=== PATIENT | male | born 1985 | race Caucasian/White ===

== ENCOUNTER 2020-12-07 18:38 | Outpatient (REF) | payer OTHER, SELFPAY ==
[2020-12-07 19:19] LABS: Amphetamine Screen Urine Not Detected (Not Detect); Barbiturates, Urine Not Detected (Not Detect); Benzodiazepines Screen Urine Not Detected (Not Detect); Cannabinoid Screen Urine Not Detected (Not Detect); Cocaine Screen Urine Not Detected (Not Detect); Opiate Screen Urine Not Detected (Not Detect); Phencyclidine Screen Urine Not Detected (Not Detect)
[2020-12-10 04:37] LABS: Codeine, Ur NEGATIVE ng/mL (<50); Hydrocodone, Ur NEGATIVE ng/mL (<50); Hydromorphone, Ur NEGATIVE ng/mL (<50); Morphine, Ur NEGATIVE ng/mL (<50); Norhydrocodone, Ur NEGATIVE ng/mL (<50); Noroxycodone, Ur NEGATIVE ng/mL (<50); Oxycodone, Ur NEGATIVE ng/mL (<50); Oxymorphone, Ur NEGATIVE ng/mL (<50)
== END 2020-12-07 18:39 | disposition home or self-care (01) ==
LOC: HO.LNP 18:38
PROVIDERS: Visit Provider Family Medicine
DX: F11.11 Opioid abuse, in remission (principal); F90.2 Attention-deficit hyperactivity disorder, combined type
CPT/HCPCS: 80307; 80364; 80365

== ENCOUNTER 2024-12-08 14:27 | Outpatient (AMB) | payer BC, SELFPAY ==
--- NOTE | 2024-12-08 14:37 | MHC.PC.OV ---
Vital Signs 12/08/24 14:40 Height 5 ft 7 in Weight 221 lb BMI 34.6 BP 134/82 Blood Pressure Location Lt brachial Position Sitting Pulse 89 Pulse Source Pulse Oximeter Pulse Oximetry (%) 99 Oxygen Delivery Method Room Air Intake Visit Reasons: re est care from ronan Consumer Affairs Specialist Required: No Allergies No Known Allergies Allergy (Verified 12/08/24 14:37) Medication List - Last Reconciled 12/08/24 by Wendie Szymanski PA-C dextroamphetamine-amphetamine 10 mg ER 1 cap PO QAM 30 days Tobacco use date assessed: 12/08/24 Dental Screening Dental Screen Date: 12/08/24 Did you have a dental visit in the last 12 months?: No Did you have a dental problem in the last 6 months where you did not have access to dental care?: No Was dental information given to patient?: Patient declined HPI re est care from ronan HPI Details History of Present Illness The patient is a 39-year-old male presenting with a request for medication refill for ADHD. He has been diagnosed with ADHD previously and was being treated with Adderall 10 mg. His last visit with Dr. Stevenson was in 2020, during which he was on Adderall. He visited an urgent care clinic since then for an evaluation and a physical check-up, where Adderall was prescribed. The patient reports running out of his medication and seeks a refill ahead of an upcoming exam, expressing a need for chemical balance. He reports a history of ADHD since childhood and recalls being on higher doses of medication during that time. he tells me today that he does not think he needs a psychiatry consult. 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 he starts it this week. States that he does not know a lot about how long the program is or much about it at all. Health Maintenance - Discussed the need to ensure proper function of thyroid, liver, and kidney, as well as cholesterol levels, blood sugar levels, and electrolytes. 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 - Lives in [place], making healthcare logistics a consideration in terms of travel for labs and consultations. Plan - Refill Adderall 10 mg prescription for ADHD. - Submit prescription to patient's pharmacy located at [facility]. - Instruct patient to follow up with Dr. Stevenson for any adjustments to medication dosage. - Recommend scheduling with Dr. Stevenson to review ADHD management. - Consider referral for a psychiatric evaluation, anticipating that further counseling might be recommended for ADHD management. Patient was informed and verbally consented to the use of an ambient scribe for clinic note documentation during this visit. Discussion Notes During the visit, I discussed with the patient the reasons for adhering to practice protocols regarding the prescription of controlled substances such as Adderall. I clarified that while I can refill his current dosage, adjustments to the dosage must be approved by Dr. Stevenson to comply with regulations and ensure optimal care continuity. We also addressed the option of coordinating with psychiatry for further ADHD evaluation. The patient agreed to this approach and will follow up accordingly. Patient Instructions - Continue taking Adderall as prescribed. - Obtain blood work at a convenient location to assess overall health markers. - Contact me or utilize the patient portal for prescription refills on a monthly basis. [facility] Surgical History No pertinent past surgical history Family History Father Unknown family medical history Mother No problems noted. Brother No problems noted. Brother No problems noted. Brother No problems noted. Sister No problems noted. Sister No problems noted. Son No problems noted. Son No problems noted. Son No problems noted. Maternal Grandmother Lung cancer Social History Housing: House (Three story house) Patient Tobacco Use Status: Never used Tobacco e-Cigarette/Vaping Use: Never Used Second Hand Smoke Exposure: No service: No Current occupational status: unemployed Cognitive needs: No Hearing needs: No Vision needs: No Questionnaire PHQ-9 Over the last 2 weeks, how often have you been bothered by any of the following problems? 1. Little interest or pleasure in doing things: not at all 2. Feeling down, depressed, or hopeless: not at all 3. Trouble falling or staying asleep, or sleeping too much: not at all 4. Feeling tired or having little energy: not at all 5. Poor appetite or overeating: not at all 6. Feeling bad about yourself - or that you are a failure or have let yourself or your family down: not at all 7. Trouble concentrating on things, such as reading the newspaper or watching television: several days 8. Moving or speaking so slowly that other people could have noticed. Or the opposite - being so fidgety or restless that you have been moving around a lot more than usual: not at all 9. Thoughts that you would be better off or of hurting yourself in some way: not at all Total score: 1 Depression Screening Interpretation: Negative Depression Screening Done: Yes 61079 - PHQ-9 Billing: Yes Source: Developed by Drs. Dusty Brown, Reyna Alva, Jermaine Madden and colleagues, with an educational sherri from [employer]. Thrive Questionnaire I am a: Patient What is your living situation today?: I have a place to live, but I am worried about losing it in the future Within the past 12 months, did the food you bought not last and you didn't have the money to get more?: Often true Within the past 12 months, did you worry whether your food would run out before you got money to buy more?: Often true Do you have trouble paying for medicines?: Yes Do you have trouble getting transportation to medical appointments?: No Do you have trouble paying your heating and electricity bill?: No Do you have trouble taking care of your child, family member or friend?: No Do you have trouble with day-to-day activities such as bathing, preparing meals, shopping, managing finances, etc.?: No Are you currently unemployed and looking for a job?: Yes Are you interested in more education?: Yes Please select the resources that you would like help with: Food, Paying for medicine and Education Currently or been in a relationship where the following occur: I choose not to answer THRIVE Score: 3 AUDIT C Alcohol Use Questionnaire (AUDIT-C) 1. How often do you have a drink containing alcohol?: Monthly or less 2. How many drinks containing alcohol do you have on a typical day when you are drinking?: 1 or 2 3. How often do you have six or more drinks on one occasion?: Never Total Score: 1 YOVANI-7 AMB Questionnaire YOVANI-7 Feeling nervous, anxious, or on edge: 0 = Not at all Not being able to stop or control worryin = Not at all Worrying too much about different things: 0 = Not at all Trouble relaxin = Not at all Being so restless that it is hard to sit still: 1 = Several days Becoming easily annoyed or irritable: 0 = Not at all Feeling afraid as if something awful might happen: 0 = Not at all Total YOVANI-7 score (0-4 normal; 5-9 mild; 10-14 moderate; 15-21 severe): 1 Source: Developed by Drs. Dusty Brown, Reyna Alva, Jermaine Madden and colleagues, with an educational sherri from [employer]. YOVANI-7 Assessment Billing YOVANI-7 Assessment Tool: YOVANI-7 Assessment 20111 Physical exam (Primary Care) Vital Signs: Last Vital Signs Pulse 89 12/08/24 14:40 BP 134/82 12/08/24 14:40 Pulse Ox 99 12/08/24 14:40 Oxygen Delivery Method Room Air 12/08/24 14:40 BMI result Body Mass Index 34.6 Tobacco/Smoking Status: Tobacco use Status Tobacco use date assessed 12/08/24 12/08/24 14:44 Patient Tobacco Use Status Never used Tobacco 12/08/24 14:44 e-Cigarette/Vaping Use Never Used 12/08/24 14:44 PHQ-9: PHQ-9 Score PHQ-9: Total score 1 12/08/24 14:44 Depression Screening Interpretation: Negative Currently or been in a relationship where the following occur: I choose not to answer Const Orientation/consciousness: patient oriented x3 HENMT Ears: hearing grossly normal bilaterally Neck Thyroid: Thyroid normal Lymphatic: no lymphadenopathy noted Resp Auscultation: clear to auscultation bilaterally Cardio Rate: regular rate Rhythm: regular rhythm Heart sounds: S1 normal heart sound present and S2 normal heart sound present GI Inspection: Yes normal to inspection Palpation (GI): Soft to palpation and Other GI palpation findings present (nontender, no cva tenderness) Auscultation: normoactive bowel sounds Rectal Exam - Male: Yes deferred Skin General skin exam: no rashes or lesions noted Neuro General: patient oriented x3, gait normal and no focal motor deficits Coding Level of Care Code New Pt Level 3 (73832) Diagnoses Attention deficit hyperactivity disorder, combined type, moderate F90.2 Additional Codes PHQ-9 - 47361 - PHQ-9 Billing: Yes ([id number]) YOVANI-7 Assessment Billing - YOVANI-7 Assessment Tool: YOVANI-7 Assessment 47166 ([id number]) Assessment & Plan Assessment & Plan (1) Attention deficit hyperactivity disorder, combined type, moderate: Code(s): F90.2 - Attention-deficit hyperactivity disorder, combined type Category: Medical Plan: Refilled today Orders: Orders Complete Blood Count Auto Diff Today F90.2 - Attention-deficit hyperactivity disorder, combined type, Z13.220 - Encounter for screening for lipoid disorders TSH reflex Free T4 Today F90.2 - Attention-deficit hyperactivity disorder, combined type, Z13.220 - Encounter for screening for lipoid disorders Comprehensive [place]. Panel Fast Today F90.2 - Attention-deficit hyperactivity disorder, combined type, Z13.220 - Encounter for screening for lipoid disorders Lipid Panel Today F90.2 - Attention-deficit hyperactivity disorder, combined type, Z13.220 - Encounter for screening for lipoid disorders Medications: New dextroamphetamine-amphetamine 10 mg ER 1 cap PO QAM 30 days 30 caps 0RF
[2024-12-08 14:40] VITALS: BP 134/82; PULSE 89; O2SAT 99; BMI 34.6
== END 2024-12-08 15:07 | disposition home or self-care (01) ==
PROVIDERS: PCP Physician Assistant; Visit Provider Physician Assistant
DX: F90.2 Attention-deficit hyperactivity disorder, combined type (principal)

== ENCOUNTER → 2024-12-08 14:27 | Outpatient (BNVA) | payer BC, SELFPAY | PROVIDERS: PCP Physician Assistant; Visit Provider Physician Assistant | DX: F90.2 Attention-deficit hyperactivity disorder, combined type (principal) | CPT/HCPCS: 96127 ==

== ENCOUNTER 2025-03-30 11:20 | Outpatient (AMB) | payer OTHER, SELFPAY ==
--- NOTE | 2025-03-30 11:30 | MHC.PC.OV ---
Vital Signs 03/30/25 11:38 Height 5 ft 8 in Weight 222 lb BMI 33.8 BP 124/74 Blood Pressure Location Rt brachial Position Sitting Respiration 16 Pulse 122 H Pulse Source Pulse Oximeter Temp 97.8 F Temp Source Oral Pulse Oximetry (%) 100 Oxygen Delivery Method Room Air Intake Visit Reasons: dr stevenson - med check Intake Note: patient is here for Medication check. patient want his medication Addrall boosted. want labs redone Allergies Seasonal Allergies Allergy (Mild, Verified 03/30/25 11:33) scrachy eyes peanut Adverse Reaction (Mild, Verified 03/30/25 11:33) Facial Swelling Medication List - Last Reconciled 03/30/25 by Rasheed Stevenson MD dextroamphetamine-amphetamine 20 mg ER 20 mg PO QAM 30 days Tobacco use date assessed: 03/30/25 Dental Screening Dental Screen Date: 03/30/[address] stevenson - med check HPI Details 39 y/o male presents to f/u ADHD. He is on dextroamphetamine-amphetamine 10mg ER. He notes it has been helping. Pt notes he would like to increase his dose. Denies anxiety, effects to his sleep. He notes some appetite suppression. HPI Comments History of Present Illness Details Documentation assistance for Rasheed Stevenson MD, was provided by Alex Farrar,? Director Of Placement on 03/30/2025 at 11:56 AM EST. I, Dr. Stevenson, have read, observed, and verified documentation. ?? [facility] Surgical History No pertinent past surgical history Family History Father Unknown family medical history Mother No problems noted. Brother No problems noted. Brother No problems noted. Brother No problems noted. Sister No problems noted. Sister No problems noted. Son No problems noted. Son No problems noted. Son No problems noted. Maternal Grandmother Lung cancer Social History Housing: House (Three story house) Patient Tobacco Use Status: Never used Tobacco e-Cigarette/Vaping Use: Never Used Second Hand Smoke Exposure: No service: No Current occupational status: unemployed Cognitive needs: No Hearing needs: No Vision needs: No Questionnaire Thrive Questionnaire Date Thrive assessed: 03/30/25 I am a: Patient What is your living situation today?: I have a place to live, but I am worried about losing it in the future Within the past 12 months, did the food you bought not last and you didn't have the money to get more?: Often true Within the past 12 months, did you worry whether your food would run out before you got money to buy more?: Often true Do you have trouble paying for medicines?: Yes Do you have trouble getting transportation to medical appointments?: No Do you have trouble paying your heating and electricity bill?: No Do you have trouble taking care of your child, family member or friend?: No Do you have trouble with day-to-day activities such as bathing, preparing meals, shopping, managing finances, etc.?: No Are you currently unemployed and looking for a job?: Yes Are you interested in more education?: Yes Currently or been in a relationship where the following occur: I choose not to answer THRIVE Score: 3 Review of Systems Const Denies chills, Denies fatigue, Denies fever(s), Denies headache(s) and Denies weakness ENT Denies dizziness and Denies headache(s) Card Denies dyspnea Resp Denies cough, Denies dyspnea, Denies wheezing and Denies other (shortness of breath) Musc Denies numbness and Denies tingling Neuro Denies dizziness, Denies headache(s), Denies numbness, Denies tingling and Denies weakness Psych Denies anxiety and Denies depression Endo Denies fatigue Aller/Immun Denies wheezing Physical exam (Primary Care) Vital Signs: Last Vital Signs Temp 97.8 F 03/30/25 11:38 Pulse 122 H 03/30/25 11:38 Resp 16 03/30/25 11:38 BP 124/74 03/30/25 11:38 Pulse Ox 100 03/30/25 11:38 Oxygen Delivery Method Room Air 03/30/25 11:38 BMI result Body Mass Index 33.8 Tobacco/Smoking Status: Tobacco use Status Tobacco use date assessed 03/30/25 03/30/25 11:42 Patient Tobacco Use Status Never used Tobacco 03/30/25 11:35 e-Cigarette/Vaping Use Never Used 03/30/25 11:35 Thrive Assessment: Date of Thrive Assessment Date Thrive assessed 03/30/25 03/30/25 11:42 Currently or been in a relationship where the following occur: I choose not to answer Const General: well developed; No acute distress Nutritional Appearance: well nourished Orientation/consciousness: patient oriented x3 HENMT Head: Yes normocephalic and Yes atraumatic Eyes General: appearance normal, both eyes and all related structures Pupils: Equal, round and reactive pupils present EOM: EOMs intact bilaterally Resp Effort & Inspection: normal respiratory effort Neuro General: patient oriented x3 and gait normal Cranial nerves: Yes Equal, round and reactive pupils present Psych Affect: normal affect Coding Level of Care Code Est Pt Level 3 (96867) Diagnoses Attention deficit hyperactivity disorder, combined type, moderate F90.2 Assessment & Plan Assessment & Plan (1) Attention deficit hyperactivity disorder, combined type, moderate: Code(s): F90.2 - Attention-deficit hyperactivity disorder, combined type Category: Medical Plan: Patient?was?seen?in?November?for?ADHD?and?restarted?on?Adderall?ER?10?mg?daily He?says?that?this?is?helping?but is?not?enough? Denies?any?anxiety.??Denies?any?affect?on?his?sleep. He?does?note?some?appetite?suppression.??He?is?not?underweight.??Very?muscular. Discussed?with?patient?that?I?am?willing?to?increase?this?to?20?mg?daily Also?discussed?with?patient?that?I?do?not?exceed?Adderall?ER?30?mg?daily?as?he?was?enquiring?about?higher?doses. Will?give?patient?back?in?a?month?to?review. Check labs Orders: Orders Amphetamine by GC/MS Today F11.11 - Opioid abuse, in remission UA CC w/rflx Micro + Cult Today Z00.00 - Encounter for general adult medical examination without abnormal findings TSH reflex Free T4 Today Z00.00 - Encounter for general adult medical examination without abnormal findings Comprehensive [place]. Panel Fast Today F90.2 - Attention-deficit hyperactivity disorder, combined type, Z00.00 - Encounter for general adult medical examination without abnormal findings Complete Blood Count Auto Diff Today F90.2 - Attention-deficit hyperactivity disorder, combined type, Z00.00 - Encounter for general adult medical examination without abnormal findings Lipid Panel Today Z00.00 - Encounter for general adult medical examination without abnormal findings Microalbumin, Random (w Creat) Today I10 - Essential (primary) hypertension Drug Screen Urine Today F90.2 - Attention-deficit hyperactivity disorder, combined type Medications: New dextroamphetamine-amphetamine 20 mg ER [facility] Verified. Partial Fill upon patient request. 20 mg PO QAM 30 days 30 caps 0RF Discontinued dextroamphetamine-amphetamine 10 mg ER Discontinued Reason: Doctor's Order 1 cap PO QAM 30 days 30 caps 0RF
[2025-03-30 11:38] VITALS: BP 124/74; PULSE 122; RESP 16; TEMP 36.6; O2SAT 100; BMI 33.8
== END 2025-03-30 12:03 | disposition home or self-care (01) ==
LOC: HO.HMCFM 11:21
PROVIDERS: PCP Family Medicine; Visit Provider Family Medicine
DX: F90.2 Attention-deficit hyperactivity disorder, combined type (principal)

== ENCOUNTER → 2025-03-30 11:20 | Outpatient (BNVA) | payer OTHER, SELFPAY | PROVIDERS: PCP Family Medicine; Visit Provider Family Medicine | DX: F90.2 Attention-deficit hyperactivity disorder, combined type (principal); F11.11 Opioid abuse, in remission; Z79.899 Other long term (current) drug therapy | CPT/HCPCS: 99212 ==

== ENCOUNTER 2025-03-30 12:43 | Outpatient (REF) | payer OTHER, SELFPAY ==
--- OUTSIDE RECORDS SUMMARY | 2025-03-30 13:03 | XMS_ITS | Clinical Summary ---
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 Name Role Phone Unavailable Primary Care Provider Unavailabl e Social History Tobacco Use Types Packs/Day Years Used Date Smoking Tobacco: Never Assessed Sex and Gender Information Value Date Recorded Sex Assigned at Not on file Legal Sex Male 8:58 PM EST Gender Identity Not on file Sexual Orientation Not on file Last Filed Vital Signs Vital Sign Reading Time Taken Comments Blood Pressure 124/62 12/31/2022 10:17 AM EST Sitting L Arm Pulse 79 12/31/2022 10:17 AM EST Temperature - - Respiratory Rate - - Oxygen Saturation - - Inhaled Oxygen Concentration - - Weight 93.7 kg (206 lb 9.6 oz) 12/31/2022 10:17 AM EST Height 172.7 cm (5' 8 ) 12/31/2022 10:1 7 AM EST Body Mass Index 31.41 12/31/2022 10:17 AM EST Plan of Treatment Health Maintenance Due Date Last Done Comments DTaP,Tdap,and Td Vaccines (1 - Tdap) 2005 Hepatitis B Vaccines (1 of 3 - 19+ 3-dose series) 2005 Cholesterol Screening (Lipid Panel) 12/12/2023 Depression Screening 12/12/2023 HIV Screening 12/12/2023 Hepatitis C Screening 12/12/2023 Social Influencers of Health Screening 12/12/2023 COVID-19 Vaccine ( - 2023-2 5 season) 2024 Influenza Vaccine (Season Ended) 2025 HIB Vaccines Aged Out No longer eligi ble based on patient's age to complete this topic HPV Vaccines Aged Out No longer eligi ble based on patient's age to complete this topic Hepatitis A Vaccines Aged Out No long er eligible based on patient's age to complete this topic IPV Vaccines Aged Out No longer eligi ble based on patient's age to complete this topic MMR Vaccines Aged Out No longer eligi ble based on patient's age to complete this topic Meningococcal ACWY Vaccine Aged Out N o longer eligible based on patient's age to complete this topic Meningococcal B Vaccine Aged Out No l onger eligible based on patient's age to complete this topic Pneumococcal Vaccine: Pediat rics (0 to 5 Years) and At-Risk Patients (6 to 64 Years) Aged Out No longer eligible b ased on patient's age to complete this topic RSV Immunization Patients Un scott 20 months Aged Out No longer eligible b ased on patient's age to complete this topic Varicella Vaccines Aged Out No longer eligible based on patient's age to complete this topic
[2025-03-30 14:57] LABS: MANUAL DIFF FLAG NO
[2025-03-30 15:01] LABS: Basophils Percent Auto 0.5 % (0-2); Eosinophils Absolute Auto 0.1 X10*3/uL (0.0-0.4); Eosinophils Percent Auto 1.4 % (0-4); Hematocrit 44.6 % (42.0-52.0); Hemoglobin 15.9 g/dl (14.0-18.0); Imm Gran Abs Auto 0.09 X10*3/uL (0.00-0.03); Lymphocytes Absolute Auto 1.8 X10*3/uL (1.2-4.9); Lymphocytes Percent Auto 21.1 % (20-40); Mean Corpuscular HGB Conc 35.7 g/dl (31.0-36.0); Mean Corpuscular Hemoglobin 30.6 pg (27.0-33.0); Mean Corpuscular Volume 85.8 fL (80.0-98.0); Mean Platelet Volume 11.1 fL (9.4-12.4); Monocytes Absolute Auto 0.5 X10*3/uL (0.1-1.2); Monocytes Percent Auto 6.3 % (2-11); Neutrophils Percent Auto 69.7 % (45-73); Platelet Count 333 X10*3/uL (160-400); Red Cell Distribution Width 12.1 % (11.0-16.0); White Blood Count 8.6 X10*3/uL (4.8-10.8)
[2025-03-30 15:03] LABS: Appearance Urine Clear; Color Urine Yellow; Glucose Urine UA Negative (Negative); Leukocyte Esterase Urine Negative (Negative); Nitrite Urine Negative (Negative); Specific Gravity - Urine 1.025 (1.005-1.025); Urine Blood Negative (Negative); Urine Ketones Negative (Negative); Urine Protein Negative (Neg-Trace)
[2025-03-30 15:05] LABS: Amphetamine Screen Urine POSITIVE (Not Detect); Barbiturates, Urine Not Detected (Not Detect); Benzodiazepines Screen Urine Not Detected (Not Detect); Buprenorphine Scr Not Detected (Not Detect); Cannabinoid Screen Urine Not Detected (Not Detect); Cocaine Screen Urine Not Detected (Not Detect); Fentanyl, urine Not Detected (Not Detect); Methadone Screen, Urine Not Detected (Not Detect); Opiate Screen Urine Not Detected (Not Detect); Oxycodone Screen Urine Not Detected (Not Detect); Phencyclidine Screen Urine Not Detected (Not Detect)
[2025-03-30 15:33] LABS: Creatinine Urine 185.15 mg/dL; Microalbum/Creatinine Ratio Ur 4.3 ug/mg cr (<30)
[2025-03-30 15:37] LABS: TSH reflex Free T4 2.28 uIU/mL (0.32-4.0)
[2025-04-05 13:27] LABS: Amphetamine, Urine GC/MS >15000
[2025-04-05 13:28] LABS: Methamphetamine, Urine GC/MS NEGATIVE
== END 2025-03-30 12:44 | disposition home or self-care (01) ==
LOC: HO.WFDLDS 12:43
PROVIDERS: Referring Provider Physician Assistant; Visit Provider Family Medicine
DX: Z00.00 Encounter for general adult medical examination without abnormal findings (principal); F90.2 Attention-deficit hyperactivity disorder, combined type; Z13.220 Encounter for screening for lipoid disorders; F11.11 Opioid abuse, in remission; I10 Essential (primary) hypertension
CPT/HCPCS: 36415; 80307; 80324; 81003; 82043; 82570; 84443; 85025